=== PATIENT | male | born 1995 | race Hispanic/Latino ===

== ENCOUNTER 2017-12-18 19:57 | Emergency (ER) | payer BC, OTHER ==
[2017-12-18 20:02] VITALS: BP 117/73; PULSE 84; RESP 16; TEMP 98.4; O2SAT 97
--- NOTE | 2017-12-18 20:43 | ED PDOC ---
Upper Extremity Pain/Injury Time Seen by Provider: 12/18/17 20:03 Chief Complaint (Nursing): Finger,Hand,&Wrist Chief Complaint (Provider): Finger,Hand,&Wrist History Per: Patient History/Exam Limitations: no limitations Onset/Duration Of Symptoms: Days (x2) Current Symptoms Are (Timing): Still Present Additional Complaint(s): 22 year old male arrives to ED for an evaluation of right wrist pain status post falling out of a golf cart yesterday. Patient was able to go to work today but reports worsening of pain as he worked on a computer. He denies any numbness, tingling sensation, or other bodily injuries. PMD: Dr. Gabriel Garg Past Medical History Reviewed: Historical Data, Nursing Documentation, Vital Signs Vital Signs: Last Vital Signs Temp 98.4 F 12/18/17 20:00 Pulse 84 12/18/17 20:00 Resp 16 12/18/17 20:00 BP 117/73 12/18/17 20:00 Pulse Ox 97 12/18/17 20:00 - Family History Family History: States: Unknown Family Hx - Home Medications Home Medications: Ambulatory Orders Medication Instructions Recorded No Known Home Med 07/20/14 - Allergies Allergies/Adverse Reactions: Allergies Allergy/AdvReac Type Severity Reaction Status Date / Time No Known Allergies Allergy Verified 07/20/14 12:09 Review of Systems ROS Statement: Except As Marked, All Systems Reviewed And Found Negative Musculoskeletal: Positive for: Hand Pain (right wrist) Neurological: Negative for: Numbness (or tingling sensation) Physical Exam - Reviewed Nursing Documentation Reviewed: Yes Vital Signs Reviewed: Yes - Physical Exam Appears: Positive for: Non-toxic, No Acute Distress Pulses-Radial (L): 2+ Pulses-Radial (R): 2+ Extremity: Positive for: Capillary Refill (< 2 seconds to RUE). Negative for: Tenderness (right hand or wrist), Deformity (right hand or wrist), Swelling (right hand or wrist), Other (break on skin integrity or snuff-box tenderness) Neurologic/Psych: Positive for: Alert (x3), Oriented. Negative for: Motor/Sensory Deficits - ECG O2 Sat by Pulse Oximetry: 97 (RA) Pulse Ox Interpretation: Normal Medical Decision Making Medical Decision Making: Time: 2007 Initial Plan: * XR right wrist Time: 2044 --XR of right wrist interpreted by provider: no fractures or bony abnormalities. Velco wrist splint applied to right wrist. Upon provider re-evaluation, patient is medically stable and requires no further treatment in the ED at this time. Counseling was provided and all questions were answered regarding diagnosis and need for follow up with orthopedist. There is agreement to discharge plan. Return if symptoms persist or worsen. Clinical Impression: Wrist sprain Scribe Attestation: Documented by Krystal Lo, acting as a scribe for Rubén Posadas PA-C. Provider Scribe Attestation: All medical record entries made by the Scribe were at my direction and personally dictated by me. I have reviewed the chart and agree that the record accurately reflects my personal performance of the history, physical exam, medical decision making, and the department course for this patient. I have also personally directed, reviewed, and agree with the discharge instructions and disposition. Disposition - Clinical Impression Clinical Impression: Wrist sprain - Patient ED Disposition Is Patient to be Admitted: No Counseled Patient/Family Regarding: Studies Performed, Diagnosis, Need For Followup - Disposition Referrals: Jaleel Clark III, MD [Staff Provider] - Elliot Ellis MD [Staff Provider] - Disposition: Routine/Home Disposition Time: 20:45 Condition: STABLE Additional Instructions: FOLLOW UP WITH ORTHOPEDIST OR HAND SPECIALIST FOR FURTHER EVALUATION ALFREDITO COVINGTON, thank you for letting us take care of you today. Your provider was Max Akhtar MD and you were treated for FALL; RIGHT WRIST INJURY. The emergency medical care you received today was directed at your acute symptoms. If you were prescribed any medication, please fill it and take as directed. It may take several days for your symptoms to resolve. Return to the Emergency Department if your symptoms worsen, do not improve, or if you have any other problems. Please contact your doctor or call one of the physicians/clinics you have been referred to that are listed on the Patient Visit Information form that is included in your discharge packet. Bring any paperwork you were given at discharge with you along with any medications you are taking to your follow up visit. Our treatment cannot replace ongoing medical care by a primary care provider outside of the emergency department. Thank you for allowing the [facility] team to be part of your care today. If you had an X-Ray or CT scan: A Radiologist will review the ED reading if any change in treatment is needed we will contact you. If you had a blood, urine, or wound culture: It will take several days for the results, if any change in treatment is needed we will contact you. If you had an STI test: It will take 48 hours for the results. Please call after 1 week if you have not heard back. Instructions: Wrist Sprain (DC) Forms: [facility] ([place]), [facility] ED School/Work Excuse
--- NOTE | 2017-12-19 09:10 | RAD ---
Date of service: 12/18/2017 PROCEDURE: Right Wrist Radiographs. HISTORY: trauma COMPARISON: None. FINDINGS: BONES: Normal. No fracture. JOINTS: Normal. No dislocation. SOFT TISSUES: Normal. OTHER FINDINGS: None. IMPRESSION: Normal right wrist radiographs.
== END 2017-12-18 20:54 | disposition home or self-care (01) ==
LOC: H.ER 19:57
DX: M25.531 Pain in right wrist (principal)